=== PATIENT | female | born 1990 | race Caucasian/White ===

== ENCOUNTER 2020-05-13 07:51 | Outpatient (RCR) | payer OTHER, MEDICAID, SELFPAY ==
--- NOTE | 2020-05-13 08:55 | PTOPEVAL ---
Thank you for referring Lissett Urena to [facility].? The patient is scheduled to be seen for therapy? __2__x/week for 12 visits. Please review, sign, date and return this plan of care ARIN. I agree with and certify that the following plan of care is medically necessary. Referring Physician Date Admitting Provider: Attending Provider: Thomas Vasquez, MD Referring Provider: *PT Outpatient Evaluation Start: 05/13/20 08:01 Freq: Status: Active Protocol: Document 05/13/20 08:01 SAMUEL (Rec: 05/13/20 08:51 SAMUEL [email or web address]) Therapy Assessment Status Assessment Status Assessment Status Evaluation Evaluation Information Problem Diagnosis trapezius strain left Onset 05/05/20 Subjective Information Pt. reports that she woke with Query Text:As Reported By Patient/ pain on 05/05/20. She reports Family that pain has stayed persistent over the past week. She reports that pain is all located on the left side and into the neck and described upper trap area. She does note some weakness in the left arm and states that picking up her son is becoming more difficult. She report that pain in her neck/shoulder will wake her at night. She states that her goal for therapy is to decrease her pain. Prior Level of Function Activity Level (Last 3 Months) Occupation retail mortgage banker Hand Dominance Right Activity of Daily Living Ability Independent Indoor/Home Mobility Independent Community Mobility Independent Stairs Ability Independent Functional Cognition (Planning, Shopping Independent , Taking Medications) Cooking Yes Cleaning Yes Laundry Yes Shopping Yes Driving Yes Pain Assessment Pain Scale Pain Scale Used Numeric (1 - 10) Self Report Pain Assessment Left Neck Reported Pain Level 5 Pain Description Aching,Tender on Palpation Pain Frequency Continuous Other Pain Aggravating Factors turning her head Pain Score Pain Score 5: Self Report Interventions Used Interventions Used By Clinicians Electrical Stimulation, Exercise,Heat Cervical and Lumbar ROM Cervical ROM Cer
--- NOTE | 2020-06-24 17:16 | PCPTNOTE ---
Pt. attended a total of 4 treatment sessions from 05/13/20 to 05/22/20. She has failed to return to the clinic since her last session and will be discharged from our care at this time. Refer to pt. last daily note for discharge status. Dhaval Angel, MPT
== END 2020-05-22 09:15 | disposition home or self-care (01) ==
LOC: CHSPT 07:51
PROVIDERS: PCP Family Medicine; Visit Provider Family Medicine
DX: S46.819A Strain of other muscles, fascia and tendons at shoulder and upper arm level, unspecified arm, initial encounter (principal)
CPT/HCPCS: 97014; 97110; 97140; 97161; G0283

== ENCOUNTER 2023-05-09 11:16 | Emergency (ER) | payer OTHER, SELFPAY ==
[2023-05-09 11:26] VITALS: BP 107/64; PULSE 72; RESP 18; TEMP 36.4; O2SAT 100
[2023-05-09 11:30] VITALS: BP 107/64; PULSE 72; RESP 18; TEMP 36.4; O2SAT 100
--- NOTE | 2023-05-09 11:49 | ED.EAR ---
HPI - Ear Problem General Chief complaint: Ear Stated complaint: Right Ear Pain History of Present Illness HPI Narrative: Patient presents with right ear pain. Patient denies any drainage from her ear states she did have COVID last week and is not taking anything for nasal congestion. Related Data Home Medications Medication Instructions Recorded Confirmed albuterol 05/09/23 Allergies Allergy/AdvReac Type Severity Reaction Status Date / Time No Known Allergies Allergy Unverified 05/09/23 11:24 Review of Systems Review of Systems: CONSTITUTIONAL: Denies chills, or sweats. Reports fever and generalized body aches EYES: Denies visual changes, redness, or discharge. ENT: Denies otalgia. Reports nasal congestion runny nose and sore throat CARDIOVASCULAR: Denies chest pain, palpitations, or edema. RESPIRATORY: Denies dyspnea. Reports occasional cough GASTROINTESTINAL: Denies abdominal pain, nausea, vomiting, or diarrhea. GENITOURINARY: Denies dysuria or hematuria. SKIN: Denies rash or itching. MUSCULOSKELETAL: Denies back pain, joint pain, or myalgia. Reports generalized body aches NEUROLOGIC: Denies headache, numbness, or weakness. PSYCHIATRIC: Denies anxiety or depression. [facility] Comments At time of signature, agree with nursing past medical, surgical, social and family history. There is no relevant family history pertinent to the presenting complaint Exam Narrative: The patient is a well-developed, well-nourished in no acute distress. SKIN: Skin is warm and dry without erythema, swelling or exudate. There is good turgor. No tenting. HEAD: Atraumatic. Normocephalic. No temporal or scalp tenderness. EYES: Moist and bright. Sclera and conjunctivae normal. No discharge. PERRLA. Extraocular motions intact. Gross visual acuity intact. EARS: Pinna is normal shape and contour. Clear external auditory canals. TM pearly canales with good cone of light, no erythema or suppuration. Bilateral cerumen noted no gross hearing deficit. NOSE: pink, moist mucosa with good air movement. Clear rhinorrhea without nasal flaring. Septum midline. Mouth: moist mucous membranes. THROAT; mild erythema noted to posterior oropharynx with moderate postnasal drainage. Without exudate or ulceration.. Uvula midline. Normal movement of soft palate. NECK: Supple and nontender with full range of motion without discomfort. No meningeal signs. LUNGS: Equal and bilateral breath sounds without wheezes, rales or rhonchi. CHEST: The chest wall is without retractions or use of accessory muscles. HEART: Has a regular rate and rhythm without murmur, gallops, click or rub. ABDOMEN: Soft, nontender with positive active bowel sounds. No rebound tenderness. EXTREMITIES: Without cyanosis, clubbing or edema. Equal 2+ distal pulses and 2 second capillary refill noted. NEUROLOGIC: alert, active, . The patient moves all extremities with normal muscle strength. Normal muscle tone is noted. Normal coordination is noted. NO focal neurological findings noted. HENMT: Ears: Abnormal EAC present erythema and EAC tenderness on the right Course Course Level of Care: Express Care Visit Vital Signs Vital signs: Vital Signs Temperature 36.4 C L 05/09/23 11:26 Pulse Rate 72 05/09/23 11:26 Respiratory Rate 18 05/09/23 11:26 Blood Pressure 107/64 05/09/23 11:26 Pulse Oximetry 100 05/09/23 11:26 Oxygen Delivery Room Air 05/09/23 11:26 Temperature 36.4 C L 05/09/23 11:30 Pulse Rate 72 05/09/23 11:30 Respiratory Rate 18 05/09/23 11:30 Blood Pressure 107/64 05/09/23 11:30 Pulse Oximetry 100 05/09/23 11:30 Oxygen Delivery Room Air 05/09/23 11:30 Medical Decision Making Vital Signs Vital Signs: Vital Signs Temperature 36.4 C L 05/09/23 11:26 Pulse Rate 72 05/09/23 11:26 Respiratory Rate 18 05/09/23 11:26 Blood Pressure 107/64 05/09/23 11:26 Pulse Oximetry 100 05/09/23 11:26 Oxygen Delivery Room Air
== END 2023-05-09 11:57 | disposition home or self-care (01) ==
PROVIDERS: Emergency Provider Nurse Practitioner Family; PCP Physician Assistant
DX: H60.90 Unspecified otitis externa, unspecified ear (principal)
CPT/HCPCS: 99213; G0463

== ENCOUNTER 2023-09-08 15:55 | Outpatient (RCR) | payer OTHER, SELFPAY ==
--- NOTE | 2023-09-08 16:55 | OPREHPOC ---
Outpatient Therapy Plan of Care This is a Multidisciplinary Plan of Care that may contain components documented by all disciplines (PT, OT, and ST.) PT Problem 1 PT Problem #1 Knowledge Deficit PT Goal 1 Goal The patient will be independent in a home exercise program. Target Visit 4 PT Problem 2 PT Problem #2 Pain PT Goal 1 Goal The patient will report no greater than 2/10 knee pain with walking. Target Visit 6 PT Goal 2 Goal The patient will report 1/10 or less right knee pain with return to previous activity level including light running. Target Visit 10 PT Problem 3 PT Problem #3 Impaired Functional Mobil PT Goal 1 Goal 1. The patient will demonstrate 20% or less self perceived disability per the LEFS. 2. The patient will demonstrate proper form with squats with 10# in order to return to lifting daily items. 3. The patient will demonstrate the ability to ambulate 1,200 feet during the 6 minute walk test without knee pain to return to community ambulation. Target Visit 10 PT Problem 4 PT Problem #4 Impaired Strength PT Goal 1 Goal The patient will demonstrate 5/5 strength in the right quadriceps and hamstrings to improve squatting and lunging ability. Target Visit 10
--- NOTE | 2023-09-08 16:55 | PTOPEVAL1 ---
Assessment and note entered by Marilia Clarke, PT Evaluation Information Assessment Status Evaluation Diagnosis R knee pain Onset 08/12/23 Subjective Information Lissett Urena reports she was walking casually about a month ago and her right knee started hurting just below the knee cap on both sides. The pain has now moved to the outer side of the right knee for the last 2 weeks. She went to her doctor on 09/04/23 and was told she may have injured her ligament. She was referred to have x-rays and PT. She is noting pain anytime she has weight on the right knee that worsens with squatting and walking . She also notes pain when she presses on the area . She denies previous injuries and reports her only activity is walking a lot at work. She works at a bank. Reported Pain Level Pain Score 1: Self Report Assessment PT Clinical Summary Lissett Urena presents with right lateral knee pain with an insidious onset. She has difficulty with putting weight on the right LE, walking, and squatting. She objectively demonstrates tenderness over the lateral collateral ligament, decreased right knee and hip strength, right knee edema, and slightly impaired gait. She will benefit from skilled PT to address these limitations. Plan of Care Interventions Electrical Stimulation,Hot Pack/Cold Pack,Manual Therapy,Neuro Re-education,Patient/Caregiver Educati,Therapeutic Activities,Therapeutic Exercise PT Services Indicated Yes Treatment Frequency and 2 times a week for 10 visits Duration These treatments will address the objective and functional deficits as defined above. The patient will be advanced safely and appropriately in order for the patient to progress towards his/her prior level of function. Additional exercises will be introduced and as well as a comprehensive home exercise program upon discharge, if needed, ?to ensure carryover of functional gains achieved in the clinic. This treatment plan has been reviewed and agreement upon by the patient.
--- NOTE | 2023-09-09 17:14 | PCPTNOTE ---
I reviewed the License Pending Therapist's documentation and agree with the findings. -Marilia Clarke, PT
--- NOTE | 2023-09-16 16:50 | PCPTNOTE ---
I reviewed the License Pending Therapist's documentation and agree with the findings. -Marilia Clarke, PT
--- NOTE | 2023-09-30 08:01 | PCPTNOTE ---
Patient called & cancelled scheduled appointment on 09/28/23 due to being sick. -Marilia Clarke, PT
--- NOTE | 2023-10-01 08:52 | PCPTNOTE ---
I reviewed the License Pending Therapist's documentation and agree with the findings on 09/30/23.
--- NOTE | 2023-10-13 16:46 | OPREHPOC ---
Outpatient Therapy Plan of Care This is a Multidisciplinary Plan of Care that may contain components documented by all disciplines (PT, OT, and ST.) PT Problem 1 PT Problem #1 Knowledge Deficit PT Goal 1 Goal The patient will be independent in a home exercise program. Target Visit 4 Progress Met PT Problem 2 PT Problem #2 Pain PT Goal 1 Goal The patient will report no greater than 2/10 knee pain with walking. Target Visit 6 Progress Not Met PT Goal 2 Goal The patient will report 1/10 or less right knee pain with return to previous activity level including light running. Target Visit 16 Progress Not Met PT Problem 3 PT Problem #3 Impaired Functional Mobil PT Goal 1 Goal 1. The patient will demonstrate 20% or less self perceived disability per the LEFS. not met 2. The patient will demonstrate proper form with squats with 10# in order to return to lifting daily items. met 3. The patient will demonstrate the ability to ambulate 1,200 feet during the 6 minute walk test without knee pain to return to community ambulation. met for distance, but still very slight pain reported with ambulation. Target Visit 16 Progress Partially Met PT Problem 4 PT Problem #4 Impaired Strength PT Goal 1 Goal The patient will demonstrate 5/5 strength in the right quadriceps and hamstrings to improve squatting and lunging ability. Target Visit 16 Progress Partially Met
--- NOTE | 2023-10-13 16:46 | PTOPREEVAL ---
Assessment and note entered by JT File, PT Evaluation Information Assessment Status Re-evaluation Diagnosis R knee pain Onset 08/12/23 Subjective Information patient reports she feels better overall. she reports the knee has gotten less painful, and she tolerates standing and walking better since her initial evaluation. she reports she is still not back to 100% yet and still has some pain along the front of the R knee just below the R knee cap. Reported Pain Level Pain Score 3: Self Report Assessment PT Clinical Summary mrs. griffith presents to skilled PT services today for her 10th skilled therapy visit of R knee pain. she presents today with decreased pain in the R knee, improved gait mechanics, and decreased tenderness with palpation surrounding the R knee. she displays improved strength of the R knee as well. she continues to ahve pain along the anterior R lower leg that is distal and lateral to the patella/midline. she is not tender in this area. she has made progress towards and partial achievement of goals. she would benefit from continued skilled PT to address her remaining continued objective/functional deficits to return to prior level functional activity performance/ quality of life. Plan of Care Interventions Electrical Stimulation,Hot Pack/Cold Pack,Manual Therapy,Neuro Re-education,Patient/Caregiver Educati,Therapeutic Activities,Therapeutic Exercise PT Services Indicated Yes Treatment Frequency and continue skilled PT 2x weekly for 6 more visits Duration These treatments will address the objective and functional deficits as defined above. The patient will be advanced safely and appropriately in order for the patient to progress towards his/her prior level of function. Additional exercises will be introduced and as well as a comprehensive home exercise program upon discharge, if needed, ?to ensure carryover of functional gains achieved in the clinic. This treatment plan has been reviewed and agreement upon by the patient.
--- NOTE | 2023-10-22 13:11 | PCPTNOTE ---
Addendum entered by Katia Yan, VALERIO 10/22/23 13:12: Treatment date: 10/21/23 Original Note: On 10/22/23, the license pending [employer], [Debra Pina ], provided care and completed [facility] documentation on this patient. I have reviewed the license pending [employer]'s documentation and agree with the findings.
--- NOTE | 2023-11-05 08:23 | OPREHPOC ---
Outpatient Therapy Plan of Care This is a Multidisciplinary Plan of Care that may contain components documented by all disciplines (PT, OT, and ST.) PT Problem 1 PT Problem #1 Knowledge Deficit PT Goal 1 Goal The patient will be independent in a home exercise program. Target Visit 4 Progress Met PT Problem 2 PT Problem #2 Pain PT Goal 1 Goal The patient will report no greater than 2/10 knee pain with walking. Target Visit 6 Progress Not Met PT Goal 2 Goal The patient will report 1/10 or less right knee pain with return to previous activity level including light running. Target Visit 16 Progress Not Met PT Problem 3 PT Problem #3 Impaired Functional Mobil PT Goal 1 Goal 1. The patient will demonstrate 20% or less self perceived disability per the LEFS. not met 2. The patient will demonstrate proper form with squats with 10# in order to return to lifting daily items. met 3. The patient will demonstrate the ability to ambulate 1,200 feet during the 6 minute walk test without knee pain to return to community ambulation. met Target Visit 16 Progress Met PT Problem 4 PT Problem #4 Impaired Strength PT Goal 1 Goal The patient will demonstrate 5/5 strength in the right quadriceps and hamstrings to improve squatting and lunging ability. Target Visit 16 Progress Met
--- NOTE | 2023-11-05 08:23 | PTOPDC ---
Assessment and note entered by Marilia Clarke, PT Evaluation Information Assessment Status Discharge Diagnosis R knee pain ICD-10 Condition Codes (PT) M25.561 Onset 08/12/23 Subjective Information Lissett Urena reports her right knee is about the same overall since initiating PT. She notes pain is not present all the time but does occur with walking and she is still unable to run. She had a MRI on 10/30/23 and will see the doctor on 11/09/23 to receive the results Reported Pain Level Pain Score 0: Self Report Assessment PT Clinical Summary Lissett Urena has completed 16 skilled PT visits for right knee pain. She is reporting no overall change in her symptoms noting ongoing pain with walking and she is unable to run. She had a MRI on 10/30/23 and will see the doctor on 11/09/23 to receive her results. She objectively demonstrates improved strength in the knee and hip, improved right knee AROM to normal range, and no tenderness . She will be discharged to an independent [facility]. Plan of Care PT Services Indicated No
== END 2023-11-05 09:25 | disposition home or self-care (01) ==
LOC: CHSPT 15:55
PROVIDERS: Visit Provider Nurse Practitioner
DX: M25.562 Pain in left knee (principal)
CPT/HCPCS: 97014; 97110; 97140; 97161; 97750; G0283

== ENCOUNTER 2023-09-30 15:22 | Outpatient (CLI) | payer OTHER, SELFPAY ==
--- NOTE | ~2023-09-30 | XR_ITS ---
EXAMINATION: XR knee RT 3V DATE: 09/30/2023 15:42 INDICATION: Right knee pain. TECHNIQUE: 3 views of right knee were obtained. COMPARISON: None. FINDINGS: Bone alignment is normal. No fracture. Joint spaces are normal. No knee joint effusion. IMPRESSION: 1. Normal right knee. Reviewed, dictated and finalized at location E. IMPRESSION: 1. Normal right knee.
== END 2023-09-30 15:23 | disposition home or self-care (01) ==
LOC: CHSIMG 15:24
PROVIDERS: PCP Physician Assistant; Visit Provider Nurse Practitioner
DX: M25.561 Pain in right knee (principal)
CPT/HCPCS: 73562

== ENCOUNTER 2023-10-30 07:44 | Outpatient (CLI) | payer OTHER, SELFPAY ==
--- NOTE | ~2023-10-30 | MR_ITS ---
EXAMINATION: MR knee RT wo con DATE: 10/30/2023 08:24 INDICATION: Right lateral knee pain. TECHNIQUE: Magnetic resonance imaging (MRI) of the right knee was performed without intravenous contr ast. Sequences included axial PD-weighted FS FSE, coronal PD-weighted FSE and PD-weighted FS FSE, sag ittal PD-weighted FSE, and sagittal T2-weighted FS FSE. COMPARISON: Right knee radiographs 09/30/2023 FINDINGS: Medial compartment: Medial meniscus is normal. Medial compartment cartilage is normal. Lateral compartment: Lateral meniscus is normal. Lateral compartment cartilage is normal. Patellofemoral compartment: There is shallow partial-thickness cartilage loss of patellar lateral facet. Trochlear cartilage is n ormal. Ligaments and tendons: The anterior and posterior cruciate ligaments are normal. Medial collateral ligament and and fibular collateral ligament are normal. There is edema around the distal attachment of the iliotibial band wi th increased signal in the iliotibial band, consistent with iliotibial band syndrome. A skin marker o verlies this area. Fluid: There is a small knee joint effusion. IMPRESSION: 1. Iliotibial band syndrome. 2. Mild patellar chondrosis. 3. Small knee joint effusion. Reviewed, dictated and finalized at location A.
== END 2023-10-30 07:45 | disposition home or self-care (01) ==
PROVIDERS: PCP Physician Assistant; Visit Provider Registered Nurse
DX: M25.561 Pain in right knee (principal); M76.31 Iliotibial band syndrome, right leg; M22.8X1 Other disorders of patella, right knee; M25.461 Effusion, right knee
CPT/HCPCS: 73721